=== PATIENT | female | born 1995 | race Caucasian/White ===

== ENCOUNTER → 2016-11-03 | Outpatient (CLI) | payer MEDICAID ==
[~2016-11-03] MED LIST: MIDAZOLAM 2 MG/2 ML VIAL ONE; PROPOFOL 200 MG/20 ML VIAL ONE; VASOPRESSIN 20 UNIT/ML VIAL ONE
== END ==
LOC: FIMAGING 15:30
PROVIDERS: ATTEND Obstetrics & Gynecology
DX: O02.0 Blighted ovum and nonhydatidiform mole (principal); N93.9 Abnormal uterine and vaginal bleeding, unspecified; R10.9 Unspecified abdominal pain; R11.10 Vomiting, unspecified
CPT/HCPCS: J2250; J2704

== ENCOUNTER → 2016-11-03 | Day surgery (SDC) | payer MEDICAID ==
[~2016-11-03] MED LIST changes: +ACETAMINOPHEN/CODEINE 300/30MG TAB PO PRN; +KETOROLAC 30 MG/1 ML SDV IVP ONE; +LIDOCAINE 1% *Not for Epidural 20 ML MDV IV ONE; +METHYLERGONOVINE MAL 0.2 MG/ML INJ ONE; +MIDAZOLAM 2 MG/2 ML VIAL IVP ONE; -MIDAZOLAM 2 MG/2 ML VIAL ONE; +OXYTOCIN 10 UNIT/ML VIAL IV ONE; +OXYTOCIN/RINGERS LACTATE 1,000 ML IV ONE; -PROPOFOL 200 MG/20 ML VIAL ONE; +VASOPRESSIN 20 UNIT/ML VIAL MISC ONE; -VASOPRESSIN 20 UNIT/ML VIAL ONE; +ceFAZolin 2 GM/DEXTROSE 100 ML IV ONE
--- NOTE | 2016-11-04 05:18 | GOP ---
[f rep st] OPERATIVE REPORT DATE OF OPERATION: 11/03/2016 SURGEON: Tiffany Patten MD ANESTHESIA: IV general. ANESTHESIOLOGIST: Dr. Zhang PREOPERATIVE DIAGNOSIS: Complete molar . POSTOPERATIVE DIAGNOSIS: Complete molar . PROCEDURE PERFORMED: Suction dilation and curettage under ultrasound guidance. FINDINGS: A 10-11 cm enlarged uterus with cystic debris filling uterus on ultrasound consistent with molar . Thin endometrial stripe at end of procedure. SPECIMENS: Products of conception. ESTIMATED BLOOD LOSS: 50 mL INDICATIONS: Patient is a healthy 21-year-old, G2, P0-0-1-0. She has a history of a prior early termination by [facility]. She presented to the office at 11 weeks 0 days by sure last menstrual period after having a positive test at home. At time of evaluation ultrasound was consistent with complete molar . She was sent for laboratory evaluation and was found to have an elevated beta HCG of over 300,000 also consistent with molar . A formal pelvic ultrasound was done, also confirming complete molar . It was recommended to proceed with suction dilation and curettage to evacuate the abnormal . We discussed the risks, including pain, infection, bleeding, blood transfusion, possible injury to other organs. She agreed to proceed. We also discussed the need for ongoing monitoring of beta HCG levels and the risks of gestational trophoblastic neoplasia. DESCRIPTION OF PROCEDURE: Patient was brought to the operating room and a time- out was performed with all parties present and in agreement with patient and procedure. IV general anesthesia was started. IV Kefzol 2g was infused. She was prepped and draped in normal sterile fashion in dorsal lithotomy with Dharmesh stirrups. She had already emptied her bladder prior to the procedure. The Klopfer speculum was placed. The cervix was grasped with a single-tooth tenaculum. A paracervical block was performed with 20 ml 1% lidocaine mixed with 4 units vasopressin. The cervix was serially dilated to 12 mm. A 12 mm curette was introduced into the uterus under direct ultrasound guidance and suction was obtained and the uterus was completely emptied. This was done in 2 passes. Another pass was done with an 8 mm curette confirming that there was a gritty texture 360 degrees throughout the uterus. A gentle sharp curettage was performed confirming that there was no further products of conception present and 1 final pass was made with the 8 mm curette. A thin uterine stripe was noted. There was no bleeding at this time. The procedure was completed and the patient was brought to the recovery room in good condition. The specimen was evaluated and was consistent with molar . Counts were correct x2. Of note, patient is Rh negative. There is minimal risk of isoimmunization given this is likely a complete molar but as pathology has not yet confirmed that we will proceed with a dose of RhoGAM to prevent the possible risk of isoimmunization. IV FLUIDS: 700 mL. COMPLICATIONS: None. /[id number]/MODL MTDD
== END | disposition home or self-care (01) ==
LOC: EDSTATUS 12:30 → FOBOP 15:13 → FLD 15:22 → UNDOADMIN 15:22
PROVIDERS: ATTEND Obstetrics & Gynecology
PROC: 10D17ZZ Extraction of Products of Conception, Retained, Via Natural or Artificial Opening (ICD-10-PCS; principal; 2016-11-03)
DX: O01.0 Classical hydatidiform mole (principal)
CPT/HCPCS: J0690; J1885; J2210; J2250; J2590; J2704